=== PATIENT | male | born 1960 | race Caucasian/White ===

== ENCOUNTER 2024-10-24 16:27 | Inpatient (IN) | payer OTHER ==
[2024-10-24] MEDS: Sodium Chloride 0.9% 10 ML Syringe FLUSH PRN (17:30)
[2024-10-24] MEDS: Sodium Chloride 0.9% 1,000 ML IV SCH (17:30)
[2024-10-24 17:34] LABS: BASOPHILS PERCENT AUTO 0.1 % (0.0-1.0); EOSINOPHILS PERCENT AUTO 0.2 % (0.0-6.0); HEMATOCRIT 31.7 % (42.0-52.0); HEMOGLOBIN 12.2 gm/dl (14.0-18.0); IMMATURE GRAN ABSOLUTE AUTO 0.03 K/mm3 (0.00-0.05); IMMATURE GRAN PERCENT AUTO 0.3 % (0.0-0.4); LYMPHOCYTES ABSOLUTE AUTO 1.2 K/mm3 (1.0-4.8); LYMPHOCYTES PERCENT AUTO 12.5 % (24.0-44.0); MEAN CORPUSCULAR HGB CONC 38.5 g/dl (32.0-36.0); MEAN CORPUSCULAR VOLUME 83.2 fl (83.0-99.0); MEAN PLATELET VOLUME 8.1 fl (9.4-12.4); MONOCYTES ABSOLUTE AUTO 0.6 K/mm3 (0.0-0.8); NEUTROPHILS ABSOLUTE AUTO 7.8 K/mm3 (1.8-7.7); NEUTROPHILS PERCENT AUTO 80.9 % (41.0-71.0); PLATELET COUNT,PLT 228 K/mm3 (150-400); RED BLOOD CELL COUNT 3.81 M/mm3 (4.52-5.90); WHITE BLOOD CELL COUNT,WBC 9.65 K/mm3 (3.9-11.3)
[2024-10-24 18:02] LABS: LACTIC ACID 0.6 mmol/L (0.4-2.0)
[2024-10-24 18:12] LABS: A/G RATIO 1.2 (1-2); ALBUMIN 3.6 g/dl (3.4-5.0); BILIRUBIN TOTAL 0.7 mg/dL (0.2-1.0); BUN/CREATININE RATIO 7.7 (14-18); C-REACTIVE PROTEIN 0.44 mg/dL (<0.30); CALCIUM 8.9 mg/dL (8.5-10.1); CREATININE 1.3 mg/dL (0.7-1.3); EST CRCL DRUG DOSING (CG) 52.24 mL/min; MAGNESIUM 1.3 mg/dL (1.8-2.4); PROTEIN TOTAL,TP 6.6 g/dl (6.4-8.2)
[2024-10-24] MEDS: Magnesium Sulfate/Water Premix 2 GM/50 ML BAG IV ONE (18:30)
[2024-10-24] MEDS: Magnesium Oxide 400 MG Tab PO ONE (18:30)
[2024-10-24] MEDS ORDERED: Magnesium Sulfate/Water Premix 2 GM/50 ML BAG IV SCH (18:30)
[2024-10-24] MEDS ORDERED: Ondansetron 4 MG/2 ML SDV IV PRN (19:10)
[2024-10-24] MEDS ORDERED: Melatonin 3 MG Tab PO PRN (19:10)
[2024-10-24] MEDS ORDERED: Acetaminophen 325 MG Tab PO PRN (19:10)
[2024-10-24] MEDS: Potassium Chloride 20 MEQ Tab.ER PO ONE (19:26)
[2024-10-24] MEDS: Sodium Chloride 3% 500 ML IV SCH (21:27)
[2024-10-25 05:00] LABS: A/G RATIO 1.1 (1-2); ALBUMIN 3.2 g/dl (3.4-5.0); ANION GAP 15.5 (5-15); BILIRUBIN TOTAL 0.6 mg/dL (0.2-1.0); BUN/CREATININE RATIO 9.2 (14-18); CALCIUM 8.8 mg/dL (8.5-10.1); CREATININE 1.3 mg/dL (0.7-1.3); EST CRCL DRUG DOSING (CG) 51.49 mL/min; PROTEIN TOTAL,TP 6.2 g/dl (6.4-8.2)
[2024-10-25 05:14] LABS: POTASSIUM,K 3.5 mEq/L (3.5-5.1)
[2024-10-25 05:48] LABS: BASOPHILS PERCENT AUTO 0.2 % (0.0-1.0); EOSINOPHILS ABSOLUTE AUTO 0.1 K/mm3 (0.0-0.4); EOSINOPHILS PERCENT AUTO 1.1 % (0.0-6.0); IMMATURE GRAN ABSOLUTE AUTO 0.02 K/mm3 (0.00-0.05); IMMATURE GRAN PERCENT AUTO 0.3 % (0.0-0.4); LYMPHOCYTES ABSOLUTE AUTO 1.5 K/mm3 (1.0-4.8); MEAN PLATELET VOLUME 8.8 fl (9.4-12.4); MONOCYTES ABSOLUTE AUTO 0.7 K/mm3 (0.0-0.8); MONOCYTES PERCENT AUTO 11.8 % (0.0-8.0); NEUTROPHILS ABSOLUTE AUTO 3.8 K/mm3 (1.8-7.7); NEUTROPHILS PERCENT AUTO 62.6 % (41.0-71.0); PLATELET COUNT,PLT 243 K/mm3 (150-400); RED BLOOD CELL COUNT 3.75 M/mm3 (4.52-5.90); WHITE BLOOD CELL COUNT,WBC 6.12 K/mm3 (3.9-11.3)
[2024-10-25 06:17] LABS: HEMATOCRIT 31.5 % (42.0-52.0)
[2024-10-25 06:18] LABS: MEAN CORPUSCULAR HGB CONC 38.1 g/dl (32.0-36.0)
[2024-10-25] MEDS: Enoxaparin 40 MG/0.4 ML Syringe SUBCUT SCH (09:32)
[2024-10-25] MEDS: Sodium Chloride 0.9% 1,000 ML IV SCH (18:55)
[2024-10-26 04:28] LABS: BASOPHILS PERCENT AUTO 0.2 % (0.0-1.0); EOSINOPHILS ABSOLUTE AUTO 0.1 K/mm3 (0.0-0.4); EOSINOPHILS PERCENT AUTO 1.1 % (0.0-6.0); HEMATOCRIT 31.5 % (42.0-52.0); HEMOGLOBIN 11.7 gm/dl (14.0-18.0); IMMATURE GRAN ABSOLUTE AUTO 0.02 K/mm3 (0.00-0.05); IMMATURE GRAN PERCENT AUTO 0.2 % (0.0-0.4); LYMPHOCYTES ABSOLUTE AUTO 1.6 K/mm3 (1.0-4.8); LYMPHOCYTES PERCENT AUTO 20.2 % (24.0-44.0); MEAN CORPUSCULAR HEMOGLOBIN 31.7 pg (28.0-32.0); MEAN CORPUSCULAR HGB CONC 37.1 g/dl (32.0-36.0); MEAN CORPUSCULAR VOLUME 85.4 fl (83.0-99.0); MEAN PLATELET VOLUME 8.4 fl (9.4-12.4); MONOCYTES ABSOLUTE AUTO 0.7 K/mm3 (0.0-0.8); MONOCYTES PERCENT AUTO 8.6 % (0.0-8.0); NEUTROPHILS ABSOLUTE AUTO 5.6 K/mm3 (1.8-7.7); NEUTROPHILS PERCENT AUTO 69.7 % (41.0-71.0); PLATELET COUNT,PLT 241 K/mm3 (150-400); RED BLOOD CELL COUNT 3.69 M/mm3 (4.52-5.90)
[2024-10-26 04:54] LABS: A/G RATIO 1.1 (1-2); ALBUMIN 3.2 g/dl (3.4-5.0); ANION GAP 15.1 (5-15); BILIRUBIN TOTAL 0.5 mg/dL (0.2-1.0); BUN/CREATININE RATIO 9.2 (14-18); CALCIUM 8.4 mg/dL (8.5-10.1); CREATININE 1.3 mg/dL (0.7-1.3); EST CRCL DRUG DOSING (CG) 50.86 mL/min; POTASSIUM,K 3.1 mEq/L (3.5-5.1); PROTEIN TOTAL,TP 6.1 g/dl (6.4-8.2)
[2024-10-26] MEDS: Nicotine 14 MG/24 Hr Patch TRDERM SCH (08:16)
[2024-10-26] MEDS: Potassium Chloride 20 MEQ Tab.ER PO ONE (08:16)
[2024-10-26] MEDS: Lisinopril 20 MG Tab PO SCH (08:16)
[2024-10-26] MEDS: Magnesium Sulfate/Water Premix 2 GM in Premix Bag 1 BAG IV ONE (09:00)
[2024-10-26] MEDS: Polyethylene Glycol 3350 Powder 17 GM Packet PO ONE (09:01)
[2024-10-26] MEDS: Hyaluronidase, Human Recomb. 150 Unit/ML Vial SUBCUT ONE (10:45)
== END 2024-10-26 11:33 | disposition home or self-care (01) | DRG 641 ==
LOC: JD.ED 16:27 → JD.ICU 19:10 → JD.MS 10-25 13:48
PROVIDERS: ADMIT Family Medicine; ATTEND Family Medicine
DX: E87.1 Hypo-osmolality and hyponatremia (principal); I10 Essential (primary) hypertension; E78.00 Pure hypercholesterolemia, unspecified; Z79.899 Other long term (current) drug therapy; E87.6 Hypokalemia; E83.42 Hypomagnesemia; E83.39 Other disorders of phosphorus metabolism; T50.2X5A Adverse effect of carbonic-anhydrase inhibitors, benzothiadiazides and other diuretics, initial encounter
CPT/HCPCS: 36415; 71045; 71045-26; 80053; 83605; 83735; 83880; 83930; 83935; 84100; 84295; 84300; 84484; 85025; 86140; 93005; 93010; 96361; 96365; 97110-GP; 97116-GP; 97161-GP; 99285; 99285-25; A9270-GY; J1650; J3475; J3490; J7030; J7131